=== PATIENT | female | born 1985 | race Caucasian/White ===

== ENCOUNTER 2020-05-20 08:59 | Emergency (ER) | payer OTHER, SELFPAY ==
[2020-05-20 09:00] VITALS: BP 141/79; PULSE 139; RESP 16; TEMP 36.3; O2SAT 100; BMI 27.4
--- NOTE | 2020-05-20 09:25 | HMH.EDUTC ---
[facility] [place] Disposition Clinical Impression: Exposure to COVID-19 virus Disposition: Home, Self-Care Condition on Discharge: Good Instructions: DI for COVID-19 (Suspected or Confirmed ), Preventing the Spread of Coronavirus Discharge Instructions Additional Instructions: Drink plenty of fluids. Take tylenol for pain or fever. Return if you begin to have difficulty breathing. Follow up with your regular doctor. GO TO THE ER FOR ANY WORSENING SYMPTOMS Referrals: Jose Porras MD [Primary Care Provider] - Time of Disposition: :27 Medical Decision Making - Medical Records Medical records reviewed: No: I reviewed the patient's medical records. - Vinicio Inquiry Pt receiving controlled substance: No Vital Signs: 05/20/20 09:00 Temperature 97.3 F L Temperature Source Oral Pulse Rate [Right Brachial] 139 H Respiratory Rate 16 Blood Pressure [Right Arm] 141/79 H Blood Pressure Mean [Right Arm] 99 Blood Pressure Source [Right Arm] Automatic Cuff Blood Pressure Position [Right Arm] Sitting 02 Sat by Pulse Oximetry 100 Oxygen Delivery Method Room Air Orders (Tests/Meds): ORDERS Category Date Time Status Covid-19 Nasal PCR ([facility]) Routine Lab 05/20/20 09:10 Received [facility] [place] HPI - General Stated complaint: covid exposure Time Seen by Provider: 05/20/20 09:25 Mode of Arrival: Ambulatory Source of Information: Patient Limitations: No Limitations Description of Symptoms (Recalled from Triage Doc. by RN): COVID TEST D/T EXPOSURE. DENIES SYMPTOMS HEENT Symptoms (Recalled from RN notes): No Resp Symptoms (Recalled from RN notes): No Skin Symptoms (Recalled from RN notes): No MS Symptoms (Recalled from RN notes): No Functional Status (Recalled from RN notes): WNL - History of Present Illness Provider Complaint: She was exposed to covid-19 last week. Her work told her that she needed to get tested for covid. She denies any symptoms so far. - Related Data Home Medications Medication Instructions Recorded Confirmed No Known Home Medications 05/20/20 05/20/20 Allergies Allergy/AdvReac Type Severity Reaction Status Date / Time No Known Allergies Allergy Verified 05/20/20 09:21 - Worker's Comp Is this a Worker's Comp case?: No [facility] History - Hepatitis A Screen Drug use history?: No High risk sexual behaviors?: No History of sexually transmitted infection?: No Currently employed?: No Childcare worker?: No Do you have indoor plumbing?: Yes Do you have electricity?: Yes Attestation statement:: This patient has been screened for Hepatitis A risk factors. I have reviewed the patient's past medical history: Yes - Social History Alcohol Intake: never Occupational Status: other ROS Obtained: Yes All systems reviewed & no additional complaints - Constitutional Constitutional: Reports system reviewed and no additional complaints, except as docu - Eyes Eyes: Reports system reviewed and no additional complaints, except as docu - ENT Ears, Nose, Mouth, and Throat: Reports system reviewed and no additional complaints, except as docu - Cardiovascular Cardiovascular: Reports system reviewed and no additional complaints, except as docu - Respiratory Respiratory: Reports system reviewed and no additional complaints, except as docu - Gastrointestinal Gastrointestingal: Reports: system reviewed and no additional complaints, except as docu Physical Exam - General General appearance: alert, in no apparent distress - Head Head exam: atraumatic, normocephalic, normal inspection - Eye Eye exam: Present: normal appearance, PERRL, EOMI - ENT ENT exam: Present: normal exam, normal oropharynx, mucous membranes moist, TM's normal bilaterally, normal external ear exam - Neck Neck exam: Present: normal inspection, full ROM, trachea midline. Absent: meningismus, lymphadenopathy - Chest Chest inspection: Present: normal inspection, symmetric chest wall rise. Absent: tendern
[2020-05-20 09:29] VITALS: BP 141/79; PULSE 120; RESP 16; TEMP 36.3; O2SAT 100
== END 2020-05-20 09:32 | disposition home or self-care (01) ==
PROVIDERS: Emergency Provider Nurse Practitioner Family; PCP Family Medicine
DX: Z20.822 Contact with and (suspected) exposure to COVID-19 (principal)
CPT/HCPCS: 99202; G0463; U0003

== ENCOUNTER 2020-05-23 08:59 | Emergency (ER) | payer OTHER, SELFPAY ==
[2020-05-23 09:10] VITALS: BP 138/84; PULSE 124; RESP 20; TEMP 36.9; O2SAT 100; BMI 27.4
--- NOTE | 2020-05-23 09:39 | HMH.EDUTC ---
[facility] [place] Clinical Impression: Exposure to COVID-19 virus Disposition: Home, Self-Care Condition on Discharge: Good Instructions: DI for COVID-19 (Suspected or Confirmed ), Coronavirus Disease 2019, Preventing the Spread of Coronavirus Discharge Instructions Additional Instructions: *Monitor Temp, Over the counter Motrin or Tylenol as directed/as needed Tylenol every 4 hours and Motrin every 6 hours (as long as your family doctor has told you that you can take it) for fever or pain. and straight to ER if unable to lower temp less than 101.0 after medication given Follow up IMMEDIATELY for new or worsening symptoms or no Noticeable improvement over the next 48-72 hours. 911 for difficulty breathing or swallowing You were tested for today for COVID19 your test result should be back in the next 24-48 hours, you may call to the [facility] to see if your test results are back in the next 48 hours [phone] [facility] hours are 9am-9pm You was given a handout with instructions for Self Quarantine and Self isolation for while you wait on test results and what to do if they are positive If you are positive the Health Dept will be contacting you also Referrals: Jose Porras MD [Primary Care Provider] - As needed Time of Disposition: 09:39 Medical Decision Making - Vinicio Inquiry Pt receiving controlled substance: No Vinicio was queried for this patient: No Vital Signs: 05/23/20 09:10 Temperature 98.5 F Temperature Source Oral Pulse Rate [Right Brachial] 124 H Respiratory Rate 20 Blood Pressure [Right Arm] 138/84 Blood Pressure Mean [Right Arm] 102 Blood Pressure Source [Right Arm] Automatic Cuff Blood Pressure Position [Right Arm] Sitting 02 Sat by Pulse Oximetry 100 Oxygen Delivery Method Room Air Orders (Tests/Meds): ORDERS Category Date Time Status Covid-19 Nasal PCR Sendout P&C Stat Lab 05/23/20 09:15 Ordered Medical Decision Narrative: Discussed with patient about elevated hr Patient states that her heart rate is always elevated but she is nervous about the test [facility] [place] - General Stated complaint: covid test Time Seen by Provider: 05/23/20 09:39 Mode of Arrival: Ambulatory Source of Information: Patient Limitations: No Limitations Description of Symptoms (Recalled from Triage Doc. by RN): NEEDS COVID TEST TO RETURN TO WORK. DENIES SYMPTOMS HEENT Symptoms (Recalled from RN notes): No Resp Symptoms (Recalled from RN notes): No Skin Symptoms (Recalled from RN notes): No MS Symptoms (Recalled from RN notes): No Functional Status (Recalled from RN notes): WNL - History of Present Illness Provider Complaint: Patient states that several people at her work has recently tested positive for COVID State that she is not having any symptoms but due to exposure they wanted her to get tested before she returned to work - Related Data Home Medications Medication Instructions Recorded Confirmed No Known Home Medications 05/20/20 05/20/20 Allergies Allergy/AdvReac Type Severity Reaction Status Date / Time No Known Allergies Allergy Verified 05/20/20 09:21 - Worker's Comp Is this a Worker's Comp case?: No [facility] History - Hepatitis A Screen Drug use history?: No High risk sexual behaviors?: No History of sexually transmitted infection?: No Currently employed?: No Childcare worker?: No Do you have indoor plumbing?: Yes Do you have electricity?: Yes Attestation statement:: This patient has been screened for Hepatitis A risk factors. I have reviewed the patient's past medical history: Yes - Social History Alcohol Intake: never Occupational Status: other ROS Obtained: Yes All systems reviewed & no additional complaints, Yes Systems reviewed as appropriate & no additional complaints - Constitutional Constitutional: Reports system reviewed and no additional complaints, except as docu, Denies body ache, Denies chills, Denies fever(s), Denies headache(s) - ENT Ears, Nose, Mouth, and
[2020-05-23 09:45] VITALS: BP 138/84; PULSE 124; RESP 20; TEMP 36.9; O2SAT 100
[2020-05-24 07:38] LABS: Covid-19 Nasal PCR Sendout P&C NEGATIVE
== END 2020-05-23 09:47 | disposition home or self-care (01) ==
PROVIDERS: Emergency Provider Nurse Practitioner; PCP Family Medicine
DX: Z20.822 Contact with and (suspected) exposure to COVID-19 (principal)
CPT/HCPCS: 99202; G0463; U0004

== ENCOUNTER → 2020-06-07 09:45 | Outpatient (CLI) | payer OTHER, SELFPAY ==
--- NOTE | 2020-06-07 09:50 | MM_ITS ---
PROCEDURE: MM DIG SCREENING MAMM BI W/CAD Digital Breast Tomosynthesis Included CLINICAL INDICATION: BREAST MASS RT, FAMILY HX OF BREAST CANCER There is a history of breast cancer patient's maternal grandmother, maternal aunt, paternal grandmother, paternal aunt and maternal cousins COMPARISON: This is a baseline exam, patient without complaints TECHNIQUE: Standard CC and MLO images and 3D Tomosynthesis was obtained. R2 CAD reviewed. FINDINGS: There is a markedly and diffusely dense and heterogenic parenchymal pattern. Broderick images are most helpful in this type of dense breast parenchyma. There are probable cystic lesions lower outer quadrant right breast and deep central portion right breast. Recommend the patient return for ultrasound survey of the right breast particularly of the areas marked on the film. The patient should probably have ultrasound left breast as well in view of the very strong family history of breast cancer and a markedly dense parenchymal pattern. There are no suspicious microcalcifications. IMPRESSION: Markedly dense parenchymal pattern most consistent with prominent fibrocystic changes. BI-RAD Category: 0 Need Additional Imaging Evaluation FOLLOW-UP: IMM Immediate Follow-up Recommended (A letter has been sent to the patient regarding results of the study.) Dictated by: Dr. Boris Ward MD 06/10/2020 14:48 Dr. Boris Ward MD in [place] 06/10/2020 14:48
== END ==
PROVIDERS: PCP Family Medicine; Visit Provider Family Medicine
DX: Z12.31 Encounter for screening mammogram for malignant neoplasm of breast (principal); Z80.3 Family history of malignant neoplasm of breast
CPT/HCPCS: 77063; 77067

== ENCOUNTER → 2020-06-12 07:51 | Outpatient (CLI) | payer OTHER, SELFPAY ==
--- NOTE | 2020-06-12 08:10 | US_ITS ---
PROCEDURE: US BREAST RT COMPLETE CLINICAL INDICATION: ABN MAMM Follow-up abnormal mammogram with extremely dense breast tissue. COMPARISON: US BL US BREAST-LT COMPLETE W/AXILLA from 07/18/2015 MG MM DIG SCREENING MAMM BI W/CAD from 06/07/2020 US US BREAST LT COMPLETE from 06/12/2020 FINDINGS: Right breast: 9 x 6 mm nodule at 12 o'clock. This is mixed having both solid and cystic component. There are numerous right breast cysts complicated cyst including a septated cyst at 1 o'clock which is 16 x 5 mm, a 7 x 4 mm cyst at 5 o'clock, 9 and 11 mm cysts at 6 o'clock, 16 mm septated cyst at 7 o'clock, 20 x 12 mm cyst at 9 o'clock and a 7 mm cyst at 9 o'clock, 4 cm septated cyst at 10 o'clock, 2.6 cm septated cyst at 11 o'clock. Palpable abnormality at 10 o'clock corresponds to the 4 cm septated cyst. Left breast: There are numerous cyst including a 3.5 cm complicated cyst at 11 o'clock, 2 cm complicated cyst at 2 o'clock, 5 mm cyst at 3 o'clock, 6 mm cyst at 6 o'clock, 14 mm cyst at 8 o'clock, 18 mm cyst at 11 o'clock IMPRESSION: Multiple bilateral complicated breast cyst. A mixed solid and cystic nodules present in the 12 o'clock region of the right breast along with numerous other complicated bilateral breast cysts. BI-RADS category 3, probably benign. Recommend six-month sonographic follow-up Dictated by: Calin Park MD 06/21/2020 13:04 Calin Park MD in [place] 06/21/2020 13:04
== END ==
PROVIDERS: PCP Family Medicine; Visit Provider Family Medicine
DX: R92.8 Other abnormal and inconclusive findings on diagnostic imaging of breast (principal)
CPT/HCPCS: 76641

== ENCOUNTER → 2023-04-30 07:49 | Outpatient (CLI) | payer BC, SELFPAY ==
--- NOTE | 2023-04-30 07:54 | MM_ITS ---
PROCEDURE INFORMATION: Exam: MG Bilateral Screening 3D Mammography Exam date and time: 04/30/2023 7:56 AM Age: 37 years old Clinical indication: Screening examination TECHNIQUE: Imaging protocol: Bilateral Screening tomosynthesis and 2D mammography including computer-aided detection (CAD) when performed. COMPARISON: 1. MG MM DIG SCREENING MAMM BI W/CAD 06/07/2020 10:00 AM 2. US BREAST LT COMPLETE 06/12/2020 8:34 AM FINDINGS: MAMMOGRAPHY: Breast composition: The breasts are extremely dense, which lowers the sensitivity of mammography. Mass: Coarse nodular parenchyma is without significant interval change Architectural distortion: None. Calcifications: No suspicious calcifications. Asymmetric density: None. Skin thickening: None. Axillary adenopathy: None. IMPRESSION: No mammographic evidence of malignancy. Annual screening is recommended unless otherwise clinically indicated. ASSESSMENT: BI-RADS Category 1: Negative
== END ==
LOC: RAD 07:49
PROVIDERS: PCP Family Medicine; Visit Provider Family Medicine
DX: Z12.31 Encounter for screening mammogram for malignant neoplasm of breast (principal)
CPT/HCPCS: 77063; 77067